=== PATIENT | male | born 2000 | race Two or more races ===

== ENCOUNTER 2022-10-17 18:59 | Emergency (ER) | payer OTHER ==
[~2022-10-17] VITALS: Ht 182.9 cm; Wt 84.0 kg
[2022-10-17] MEDS ORDERED: TETANUS-DIPTH-ACEL PERTUSSIS 0.5ML SYR Tdap IM ONE (19:30)
[2022-10-17] MEDS ORDERED: CEPH-510 PO (21:36)
[2022-10-17] MEDS ORDERED: IBUP800T27 PO (21:36)
[2022-10-17 23:05] VITALS: BP 106/68
== END 2022-10-17 23:05 | disposition home or self-care (01) ==
LOC: ER 18:59
DX: S61.512A Laceration without foreign body of left wrist, initial encounter (principal); W26.0XXA Contact with knife, initial encounter; Y93.89 Activity, other specified; Y92.89 Other specified places as the place of occurrence of the external cause; Y99.8 Other external cause status
CPT/HCPCS: 12002; 90471; 90715

== ENCOUNTER 2022-10-20 16:43 | Emergency (ER) | payer OTHER ==
[~2022-10-20] VITALS: Ht 182.9 cm; Wt 86.4 kg
[~2022-10-20 16:43] MED LIST: CEPH-510 PO; IBUP800T27 PO
[2022-10-20 17:03] VITALS: BP 130/78
[2022-10-20] MEDS ORDERED: CLIN300C8 PO (20:56)
== END 2022-10-20 21:08 | disposition home or self-care (01) ==
LOC: ER 16:43
DX: S61.512D Laceration without foreign body of left wrist, subsequent encounter (principal); Z79.899 Other long term (current) drug therapy; X58.XXXD Exposure to other specified factors, subsequent encounter